=== PATIENT | male | born 1985 | race Caucasian/White ===

== ENCOUNTER 2018-08-21 18:45 | Observation (INO) | payer OTHER, SELFPAY ==
[2018-08-21 19:05] VITALS: BP 135/80; PULSE 77; RESP 20; TEMP 37.3; O2SAT 98; BMI 21.4
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
[2018-08-21 19:44] VITALS: BP 141/87; PULSE 75; RESP 20; O2SAT 98
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
--- NOTE | 2018-08-21 20:38 | DI.CT.S_ITS ---
PROCEDURE: CT CHEST ABD PEL W CON INDICATIONS: chest pain, SOB, fall from 30-50ft TECHNIQUE: After the administration of intravenous contrast, 5 mm thick sections acquired from the lung apices to the symphysis. 5 mm coronal and sagittal reformats were performed, with additional 7 mm MIP reformats through the lungs. For radiation dose reduction, the following was used: automated exposure control, adjustment of mA and/or kV according to patient size. COMPARISON: None. FINDINGS: Image quality: Excellent. CHEST: Lungs and pleura: Minimal right pneumothorax. Multiple small patchy alveolar opacities in the right upper lobe, right middle lobe, right lower lobe, left upper lobe, and left lower lobe may represent small bilateral areas of pulmonary contusion. No pleural fluid. Incidental note is made of a small subpleural bleb in the posterior medial basal portion of the left lower lobe. Mediastinum: Heart size is normal. No pericardial effusion. No mediastinal or hilar adenopathy by size criteria. Thoracic aorta and central pulmonary arteries are normal in size. Esophagus is normal in caliber. No hiatal hernia. Chest wall: No axillary or supraclavicular adenopathy by size criteria. Thyroid gland is unremarkable. ABDOMEN: Solid organs: Liver is normal in size and enhancement. Gallbladder is unremarkable. Biliary system is non dilated. Pancreas enhances normally. Spleen is normal in size and enhancement. No adrenal nodules. Kidneys demonstrate normal size and enhancement, without hydronephrosis. Peritoneum and bowel: Bowel loops demonstrate normal wall thickness and caliber. No free fluid or air. Nodes and vessels: No retroperitoneal or mesenteric adenopathy by size criteria. Aorta and inferior vena cava are normal in size. Miscellaneous: No ventral hernias. PELVIS: Genitourinary: Bladder wall thickness is normal. Miscellaneous: No inguinal hernias or adenopathy. Bones: No suspicious bony lesions. No vertebral body compression fractures. IMPRESSION: 1. Minimal right pneumothorax. 2. No underlying right rib fracture identified. 3. Small patchy areas of airspace consolidation in all lobes of the lungs, possibly representing areas of minimal contusions. 4. Incidental subpleural bleb in the left lower lobe. 5. Unremarkable CT of the abdomen and pelvis with no evidence of significant sequelae of acute trauma. Dictated by: Sergio Jimenes M.D. on 08/21/2018 at 21:39 Approved by: Sergio Jimenes M.D. on 08/21/2018 at 21:48
[2018-08-21 20:48] LABS: Add Manual Diff / Slide Review NO; Basophils Absolute Auto 0 /uL (0-100); Basophils Percent Auto 0.3 % (0-2); Eosinophils Absolute Auto 0 /uL (0-450); Eosinophils Percent Auto 0.4 % (2-4); Hematocrit 41.9 % (41-53); Hemoglobin 14.2 g/dL (13.5-17.5); Lymphocytes Absolute Auto 1000 /uL (1100-4500); Lymphocytes Percent Auto 10.2 % (25-40); Mean Corpuscular HGB Conc 33.9 % (30-36); Mean Corpuscular Hemoglobin 32.5 PG (26-34); Mean Corpuscular Volume 95.9 fL (80-100); Monocytes Absolute Auto 700 /uL (0-900); Monocytes Percent Auto 7.3 % (3-14); Neutrophils Absolute Auto 8200 /uL (1500-7000); Neutrophils Percent Auto 81.8 % (50-75); Platelet Count 232 X10^3/uL (150-400); Red Blood Cell Count 4.37 X10^6/uL (4.5-5.9); Red Cell Distribution Width 13.4 % (11.6-14.8); White Blood Cell Count 10.1 X10^3/uL (4.5-11.0)
[2018-08-21 21:00] LABS: BUN Creatinine Ratio 22.5 (6-22); Blood Urea Nitrogen 18 mg/dL (9-20); Calcium 9.6 mg/dL (8.4-10.2); Carbon Dioxide 26 mmol/L (22-32); Chloride 99 mmol/L (98-107); Estimated Glomerular Filt Rate > 60.0 mL/min (>60); Glucose 96 mg/dL (70-100); HEMOLYSIS < 15 (0-50); Potassium 3.9 mmol/L (3.4-5.1); Sodium 138 mmol/L (137-145)
[2018-08-21 21:15] LABS: Bacteria Urine None Seen
[2018-08-21 21:16] LABS: Appearance Urine UA CLEAR; Bilirubin Urine UA NEGATIVE (NEGATIVE); Color Urine UA YELLOW; Glucose Urine UA NEGATIVE (Negative); Ketones Urine UA NEGATIVE (NEGATIVE); Leukocyte Esterase Urine UA NEGATIVE (NEGATIVE); Nitrite Urine UA NEGATIVE (Negative); Occult Blood Urine UA 1+ (Negative); Protein Urine UA TRACE (Negative); Urobilinogen Urine UA 0.2 E.U./dL (0.2)
[2018-08-21 21:34] LABS: Culture Indicated Urine Cult Not Indicated; RBC Urine 0-1/HPF (0-5/HPF); Squamous Epithelial Cell Urine 0-1 /HPF (0-5/HPF); WBC Urine 0-1/HPF (0-5/HPF)
[2018-08-21 21:55] VITALS: BP 137/91; PULSE 58; RESP 18; O2SAT 98
[2018-08-21] MEDS: HYDROMORPHONE 1 MG INJ 0.5 MG IV (21:58)
[2018-08-21] MEDS: ONDANSETRON 4 MG/2 ML INJ IV (22:15)
[2018-08-21 22:30] VITALS: BP 139/68; PULSE 83; RESP 26; O2SAT 99
[2018-08-21 23:00] VITALS: BP 139/71; PULSE 69; RESP 15; O2SAT 98
[2018-08-22] VITALS: BP 136/79; PULSE 60; RESP 17; O2SAT 100
[2018-08-22 00:30] VITALS: BP 116/90; PULSE 56; RESP 15; O2SAT 99
[2018-08-22 01:05] VITALS: BP 138/76; PULSE 56; RESP 18; TEMP 37; O2SAT 99
--- NOTE | 2018-08-22 01:10 | DI.RAD.S_ITS ---
PROCEDURE: XR CHEST 1V INDICATIONS: follow up for pneumothorax TECHNIQUE: One view of the chest was acquired. COMPARISON: [facility], CR, XR RIBS RT MIN 3V W CXR 1V, 08/21/2018, 19:35. FINDINGS: Surgical changes and devices: None. Lungs and pleura: There is a small right apical pneumothorax. The lungs are otherwise clear. No pleural effusion, no left pneumothorax. Mediastinum: Mediastinal contours appear normal. Heart size is normal size. Bones and chest wall: No suspicious bony lesions. Overlying soft tissues appear unremarkable. IMPRESSION: Trace right pneumothorax. Dictated by: Marly Gastelum M.D. on 08/22/2018 at 8:14 Approved by: Marly Gastelum M.D. on 08/22/2018 at 8:15
[2018-08-22 01:17] VITALS: BMI 21.3
[2018-08-22] MEDS: HYDROMORPHONE 0.5 MG INJ IV ×2 (01:54→05:00)
[2018-08-22] MEDS: KETOROLAC 30 MG/ML VIAL IV ×2 (02:34→08:30)
[2018-08-22 05:00] VITALS: BP 123/63; PULSE 52; RESP 18; TEMP 36.4; O2SAT 100
[2018-08-22 05:18] LABS: Hematocrit 41.1 % (41-53)
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
[2018-08-22 07:35] VITALS: BP 132/67; PULSE 61; RESP 18; TEMP 36.6; O2SAT 100
[2018-08-22] MEDS: LEVOTHYROXINE 25 MCG TABLET PO (08:29)
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
[2018-08-22] MEDS: TRAMADOL 50 MG TABLET PO (09:29)
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
== END 2018-08-22 09:45 | disposition home or self-care (01) ==
LOC: ED 19:20 → AC 23:02 → ICU 08-22 00:28
PROVIDERS: Admitting Provider Surgery; Emergency Provider Emergency Medicine; Visit Provider Surgery
DX: S27.0XXA Traumatic pneumothorax, initial encounter (principal); R07.9 Chest pain, unspecified; R06.02 Shortness of breath; W16.42XA Fall into unspecified water causing other injury, initial encounter; Y93.39 Activity, other involving climbing, rappelling and jumping off; S27.322A Contusion of lung, bilateral, initial encounter
CPT/HCPCS: 36415; 36591; 71045; 71101; 71260; 74177; 80048; 81001; 85014; 85018; 85025; 87797; 93005; 93010; 96374; 96375; 96376; 99283; 99285; G0378; J1170; J1885; J2405; Q9967